=== PATIENT | female | born 1980 | race Caucasian/White ===

== ENCOUNTER 2021-07-27 11:11 | Emergency (ER) | payer BC ==
--- NOTE | 2021-07-27 13:45 | CR ---
Chest: 2 views of the chest were obtained. Comparison: Prior chest x-ray of 07/12/10. Heart size and mediastinum are within normal limits. Lungs are clear. Bony structures appear within normal limits. Impression: 1. Nothing acute is appreciated on 2 view chest x-ray. Diagnostic code #1
[2021-07-27] MEDS ORDERED: Albuterol/Ipratropium 3.0-0.5 MG/3 ML Neb Soln NEB ONE (13:52)
[2021-07-27] MEDS ORDERED: Albuterol 6.7 GM Inhaler INH ONE (14:44)
[2021-07-27] MEDS ORDERED: predniSONE 20 MG Tab PO ONE (14:46)
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
[2021-07-27 17:02] VITALS: BP 109/67; PULSE 72
== END 2021-07-27 15:20 | disposition home or self-care (01) ==
LOC: JD.ED 11:11
DX: J40 Bronchitis, not specified as acute or chronic (principal); E03.9 Hypothyroidism, unspecified; Z72.0 Tobacco use; Z88.5 Allergy status to narcotic agent; Z88.8 Allergy status to other drugs, medicaments and biological substances; Z79.899 Other long term (current) drug therapy; Z20.822 Contact with and (suspected) exposure to COVID-19
CPT/HCPCS: 36415; 71046; 80053; 85025; 87635; 87804; 94640; 99285; A9270; J7512; J7620-GY; U0002

== ENCOUNTER 2024-03-23 09:07 | Emergency (ER) | payer BC ==
[2024-03-23] MEDS: Ondansetron 4 MG/2 ML SDV IVPUSH ONE ×2 (09:55→10:45)
[2024-03-23 09:57] LABS: BASOPHILS PERCENT AUTO 0.5 % (0.0-1.0); EOSINOPHILS ABSOLUTE AUTO 0.1 K/mm3 (0.0-0.4); EOSINOPHILS PERCENT AUTO 1.3 % (0.0-6.0); HEMATOCRIT 39.2 % (37.0-47.0); IMMATURE GRAN ABSOLUTE AUTO 0.01 K/mm3 (0.00-0.05); IMMATURE GRAN PERCENT AUTO 0.2 % (0.0-0.4); LYMPHOCYTES ABSOLUTE AUTO 1.5 K/mm3 (1.0-4.8); MEAN CORPUSCULAR HGB CONC 33.2 g/dl (32.0-36.0); MEAN CORPUSCULAR VOLUME 90.5 fl (83.0-99.0); MEAN PLATELET VOLUME 9.9 fl (9.4-12.3); MONOCYTES ABSOLUTE AUTO 0.5 K/mm3 (0.0-0.8); NEUTROPHILS ABSOLUTE AUTO 3.3 K/mm3 (1.8-7.7); PLATELET COUNT,PLT 281 K/mm3 (150-400); RED BLOOD CELL COUNT 4.33 M/mm3 (4.10-5.30); WHITE BLOOD CELL COUNT,WBC 5.46 K/mm3 (3.9-11.3)
[2024-03-23] MEDS: Ketorolac 15 MG/ML SDV IVPUSH ONE ×3 (09:57→10:49)
[2024-03-23] MEDS: Sodium Chloride 0.9% 1,000 ML IV ONE (09:59)
[2024-03-23 10:13] LABS: APPEARANCE,URINE CLEAR (Clear); BILIRUBIN,URINE NEGATIVE (Negative); COLOR,URINE YELLOW (Yellow); GLUCOSE,URINE NEGATIVE (Negative); KETONES,URINE NEGATIVE (Negative); LEUKOCYTE ESTERASE,URINE NEGATIVE (Negative); NITRITE,URINE NEGATIVE (Negative); OCCULT BLOOD,URINE NEGATIVE (Negative); PROTEIN,URINE NEGATIVE (Negative); UROBILINOGEN,URINE 0.2 (0.2-1.0)
[2024-03-23 10:25] LABS: A/G RATIO 1.2 (1-2); ALBUMIN 3.8 g/dl (3.4-5.0); ANION GAP 14.5 (5-15); BILIRUBIN TOTAL 0.5 mg/dL (0.2-1.0); BUN/CREATININE RATIO 12.5 (14-18); CALCIUM 8.8 mg/dL (8.5-10.1); CREATININE 0.8 mg/dL (0.55-1.02); EST CRCL DRUG DOSING (CG) 92.41 mL/min; POTASSIUM,K 4.5 mEq/L (3.5-5.1); PROTEIN TOTAL,TP 7.1 g/dl (6.4-8.2)
[2024-03-23] MEDS: Iopamidol 612 MG/ML 100 ML Bottle IVPUSH ONE (10:58)
[2024-03-23] MEDS: Sodium Chloride 0.9% 10 ML Syringe FLUSH ONE (10:58)
[2024-03-23 12:49] VITALS: BP 103/61; PULSE 58
== END 2024-03-23 12:45 | disposition home or self-care (01) ==
LOC: JD.ED 09:07
DX: N20.0 Calculus of kidney (principal); E03.9 Hypothyroidism, unspecified; Z88.5 Allergy status to narcotic agent; Z88.8 Allergy status to other drugs, medicaments and biological substances; Z90.710 Acquired absence of both cervix and uterus; Z79.899 Other long term (current) drug therapy
CPT/HCPCS: 36415; 74177; 80053; 81003; 85025; 96361; 96374; 96375; 96376; 99284; J1885; J2405; J3490; J7030; Q9967